=== PATIENT | male | born 2000 | race Caucasian/White ===

== ENCOUNTER 2022-09-17 14:48 | Emergency (ER) | payer BC, SELFPAY ==
--- NOTE | ~2022-09-17 | CT_ITS ---
EXAMINATION: CT abdomen pelvis w con DATE: 09/17/2022 17:04 INDICATION: Left-sided abdominal pain TECHNIQUE: Computed tomography (CT) of the abdomen and pelvis was performed with 100 mL Omnipaque-350 intravenous contrast. Automated exposure control and iterative reconstruction technique were employe d. The dose-length product was 273.52 mGy-cm. COMPARISON: None FINDINGS: Lung bases are clear. Heart size is normal. No pericardial or pleural effusion. Liver, gallbladder, s pleen, right kidney and bilateral adrenal glands are normal. 8 mm cyst at the lower pole of the left kidney. There is mild left hydronephrosis without hydroureter and without a discernible delayed left nephrogram. No evident obstructing stone or mass at the ureteropelvic junction. No stones seen along the course of the left ureter bladder is normal. No bowel obstruction. The appendix is not visualized . No pericecal inflammatory change to suggest acute appendicitis. Trace amount of ascites in the deep pelvis. No abscess or free intraperitoneal gas. No pathologically enlarged abdominal or pelvic lymph adenopathy. Straightening of the normal lumbar lordosis. Bones are otherwise unremarkable. IMPRESSION: 1. Mild left hydronephrosis with transition point without evident obstructing stone or mass at the ur eteropelvic junction. 2. Trace amount of likely reactive free fluid in the deep pelvis. Reviewed, dictated and finalized at location A. IMPRESSION: 1. Mild left hydronephrosis with transition point without evident obstructing s tone or mass at the ureteropelvic junction. 2. Trace amount of likely reactive free fluid in the deep pelvis.
[2022-09-17 14:52] VITALS: BP 124/55; PULSE 71; RESP 16; TEMP 36.8; O2SAT 98
[2022-09-17 15:29] LABS: Basophils Percent Auto 0.3 % (0.2-1.2); Eosinophils Absolute Auto 0.1 K/mm3 (0-0.3); Eosinophils Percent Auto 0.9 % (0-4.4); Hematocrit 44.3 % (42.0-52.0); Hemoglobin 15.5 g/dL (14.0-18.0); Immature Granulocyte Absolute 0.02 K/mm3 (0.00-0.031); Immature Granulocyte Percent A 0.3 % (0-0.5); Lymphocytes Absolute Auto 1.56 K/mm3 (0.9-3.2); Lymphocytes Percent Auto 20.6 % (18.3-44.2); Mean Corpuscular Hemoglobin 30.8 pg (26-34); Mean Corpuscular Volume 87.9 fl (80-100); Monocytes Absolute Auto 0.6 K/mm3 (0.1-0.6); Monocytes Percent Auto 7.9 % (2.6-8.5); Neutrophils Absolute Auto 5.3 K/mm3 (1.3-6.7); Platelet Count Result 228 k/mm3 (150-375); Red Blood Count 5.04 M/mm3 (4.6-6.20); Red Cell Distribution Width 11.7 % (11.5-14.5); White Blood Count 7.6 K/mm3 (4.5-10.0)
[2022-09-17 15:31] LABS: Appearance Urine Clear (Clear); Bilirubin Urine Negative (Negative); Blood Urine Negative (Negative); Color Urine Yellow (Yellow); Glucose Urine UA Negative (Negative); Ketones Urine Negative (Negative); Leukocyte Esterase Ur Negative LEU/UL (Negative); Nitrate Urine Negative (Negative); Protein Urine Negative (Negative); Specific Grav Ur 1.018 (1.001-1.035); Urobilinogen Urine 0.2 mg/dL (<2.0)
[2022-09-17 15:33] LABS: Add Urine Microscopic? NO; Alanine Aminotransferase 23 U/L (6-50); Alkaline Phosphatase 83 U/L (38-126); Anion Gap 8 mmol/L (8-16); Aspartate Amino Transferase 25 U/L (17-59); Blood Urea Nitrogen 12 mg/dL (9-20); Calcium 9.2 mg/dL (8.4-10.2); Carbon Dioxide 27 mmol/L (22-30); Chloride 102 mmol/L (98-107); Estimated CRCL calculation 112 ml/min; Estimated Glomerular Filt Rate > 60; Glucose 97 mg/dL (65-110); Lipase 97 U/L (23-300); Potassium 3.9 mmol/L (3.4-5.0); Sodium 137 mmol/L (137-145)
[2022-09-17] MEDS: KETOROLAC 15 MG/ML VIAL (*BKC) IV PUSH (17:12)
[2022-09-17] MEDS: SODIUM CHLORIDE 0.9% IV 1,000 ML 999 ML IV CONT (17:12)
[2022-09-17] MEDS: ONDANSETRON INJ 4 MG/2 ML VIAL IV PUSH (17:12)
--- NOTE | 2022-09-17 17:13 | ED.ABDPAIN ---
HPI - Abdominal Pain General Chief Complaint: Abdominal Pain Stated Complaint: abd pain Time Seen by Provider: 09/17/22 16:08 Source: patient and RN notes reviewed Mode of arrival: ambulatory Limitations: no limitations History of Present Illness HPI narrative: This is a 22 year old male who presents for evaluation of left upper abdominal pain. Patient reports his pain started this morning. It is constant and nonradiating. He describes his pain as sharp and dull. HE denies nausea, vomiting, fever or chills. He denies having back pain or similar pain in the past. He denies urinary complaint. HE has not take any medication for pain. Related Data Allergies Allergy/AdvReac Type Severity Reaction Status Date / Time No Known Allergies Allergy Verified 09/17/22 15:05 Review of Systems Constitutional: Constitutional: Denies weakness Cardiovascular: Cardiovascular: Denies syncope, Denies rapid heart rate, Denies irregular heart rhythm, Denies leg edema and Denies dyspnea Respiratory: Respiratory: Denies chest congestion, Denies hemoptysis, Denies excessive phlegm production and Denies dyspnea Gastrointestinal: Gastrointestinal: Reports abdominal pain, Denies hematochezia, Denies diarrhea and Denies vomiting Genitourinary: Genitourinary: Denies hematuria, Denies dysuria, Denies penile discharge and Denies testicular pain Musculoskeletal: Musculoskeletal: Denies joint swelling, Denies loss of height and Denies muscle weakness Neurologic: Denies syncope, Denies focal weakness and Denies weakness PMFSH Past Medical History Medical History (Updated 09/17/22 @ 18:14 by Hilaria Parmar MD) Patient denies medical problems Surgical History Surgical History (Updated 09/17/22 @ 17:18 by Hilaria Parmar MD) No pertinent past surgical history Social History Social History (Updated 09/17/22 @ 17:18 by Hilaria Parmar MD) Smoking status: Never smoker Exam Const: General: no acute distress and alert Nutritional Appearance: well nourished Orientation/consciousness: patient oriented x3 Limitations: no limitations HENMT: Head: normal to inspection Eyes: EOM: EOMs intact bilaterally Chest: Chest palpation & inspection: normal inspection of the chest Resp: Effort & Inspection: normal respiratory effort Auscultation: clear to auscultation bilaterally Cardio: Rate: regular rate Rhythm: regular rhythm Heart sounds: no murmurs GI: GI Palp: Yes Soft to palpation, Yes Tenderness to palpation present (GI) (LLQ), Yes Guarding due to palpation present (GI) (voluntary) and No Rigid due to palpation Auscultation: bowels sounds not normal Skin: General skin exam: normal color Rashes: no rashes Wounds: no wounds Neuro: General: patient oriented x3, moves all extremities and CN's II-XI intact bilaterally Extrem: General: normal to inspection Psych: Mental Status: mental status grossly normal Affect: normal affect Attitude: cooperative Course Reevaluation(s) Reevaluation #1: Patient reports his pain has resolved after Toradol. I discussed with patient that CT shows left hydronephrosis. Date: 09/17/22 Time: 17:59 Consultations Consultation #1: I Discussed CT shows left UPJ transition point with hydronephrosis. HE states patient will need to follow up as outpatient. Date: 09/17/22 Time: 18:12 Vital Signs Vital signs: Vital Signs Temperature 98.3 F 09/17/22 14:52 Pulse Rate 71 09/17/22 14:52 Respiratory Rate 16 09/17/22 14:52 Blood Pressure 124/55 L 09/17/22 14:52 Pulse Oximetry 98 09/17/22 14:52 Oxygen Delivery Room Air 09/17/22 14:52 Temperature 98.3 F 09/17/22 14:52 Pulse Rate 71 09/17/22 14:52 Respiratory Rate 16 09/17/22 14:52 Blood Pressure 124/55 L 09/17/22 14:52 Pulse Oximetry 98 09/17/22 14:52 Oxygen Delivery Room Air 09/17/22 14:52 MDM - Abdominal Pain Differential Diagnosis Differential diagnosis: Likely abdominal pain, calculus of kidney,
== END 2022-09-17 18:45 | disposition home or self-care (01) ==
PROVIDERS: Emergency Medicine; Emergency Provider General Practice
DX: N13.30 Unspecified hydronephrosis (principal)
CPT/HCPCS: 36415; 74177; 80053; 81003; 83690; 85025; 96361; 96374; 96375; 99284; J1885; J2405; J7030; Q9967

== ENCOUNTER 2022-10-02 07:39 | Outpatient (CLI) | payer BC, SELFPAY ==
--- NOTE | ~2022-10-02 | NM_ITS ---
EXAMINATION: ALEX lynch renal scan DATE: 10/02/2022 11:41 INDICATION: Left hydronephrosis. TECHNIQUE: 7.8 mCi Tc-99m MAG3 was administered IV. 40 mg furosemide was administered IV immediately afterward. The patient was scanned in the supine position. A posterior abdominal radionuclide angiog everette was obtained. A subsequent time course of static images of the kidneys, ureters, and bladder was obtained. COMPARISON: CT abdomen and pelvis 09/17/2022 FINDINGS: The posterior abdominal radionuclide angiogram and sequential static images show normal siz e, position, and morphology of the kidneys. Peak renal parenchymal uptake was 2 min in right kidney a nd 3 min in left kidney (normal peak 3-5 minutes). The relative early renal uptake was 49% on the ri ght and 51% on the left (<40% is abnormal). No abnormalities of the ureters or bladder are seen. T1/2 for clearance of activity from the right kidney and proximal collecting system was 5 minutes. T1/2 for clearance of activity from the left kidney and proximal collecting system was 6 minutes. Notes on interpretation: T1/2 <10 minutes is normal, 10-15 minutes is low grade obstruction of questi onable clinical significance, 15-20 minutes is partial obstruction that is likely clinically signific ant, >20 minutes is high grade obstruction. Note that false positives may be seen with supine positio manpreet, dehydration, severely dilated nonobstructed kidney, atonic collecting system, poor renal functi on, and chronic furosemide use. IMPRESSION: 1. Symmetric kidney function. 2. No delay in contrast clearance from either kidney to suggest fixed obstruction. Reviewed, dictated and finalized at location A. IMPRESSION: 1. Symmetric kidney function. 2. No delay in contrast clearance from either kidney to suggest fixed obstruct ion.
== END 2022-10-02 07:40 | disposition home or self-care (01) ==
PROVIDERS: Visit Provider Urology
DX: N13.30 Unspecified hydronephrosis (principal)
CPT/HCPCS: 78708; A9562; J1940

== ENCOUNTER 2024-03-22 08:47 | Emergency (ER) | payer BC, SELFPAY ==
--- NOTE | ~2024-03-22 | XR_ITS ---
XR hand LT min 3V DATE: 03/22/2024 10:22 INDICATION: Pain and swelling of fourth digit TECHNIQUE: 4 views COMPARISON: None FINDINGS: No fracture, dislocation, periosteal reaction or bone destruction. Joint spaces are preserv ed. No erosive change or chondrocalcinosis. IMPRESSION: Negative Reviewed, dictated and finalized at location A. 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
--- NOTE | 2024-03-22 11:07 | ED.WOUNDLAC ---
HPI - Wound/Laceration General Chief Complaint: Wound/Laceration Stated Complaint: infected finger Time Seen by Provider: 03/22/24 09:57 Source: patient Mode of arrival: ambulatory Limitations: no limitations History of Present Illness HPI narrative: This is a 23-year-old male, with history of cat bite to the left index finger at the PIP 1 month ago, who presents emergency department complaining of left index finger pain and swelling. The patient states he was at the gym earlier today, weightlifting, when he felt pain at the left palm at the base of the 1st finger. He rates his pain 6/10 and described as sharp, associated with swelling though no fevers or redness. He denies any other injury and has no other complaints. He is concerned for infection of the finger. Related Data Allergies Allergy/AdvReac Type Severity Reaction Status Date / Time No Known Allergies Allergy Verified 03/22/24 09:27 Review of Systems Review of Systems: All systems reviewed & are unremarkable except as noted in HPI and below PMFSH Past Medical History Medical History Patient denies medical problems Surgical History Surgical History No pertinent past surgical history Social History Social History Smoking status: Never smoker Alcohol intake: never Substance use: never Exam Narrative: GENERAL: Well-developed, well-nourished, and in no acute distress. HEAD: Normocephalic, atraumatic. EYES: PERRLA and EOMI. CHEST: Clear to auscultation. No respiratory distress. No wheezes rales or rhonchi HEART: Regular rate and rhythm. No murmur heard. Normal peripheral pulses. EXTREMITIES: Mild swelling is noted of the left index finger, extending from the MCP to the distal finger though without erythema. There is tenderness to palpation over the palmar aspect of left MCP. There is some tenderness with passive flexion and extension of the finger. Range of motion of the fingers intact Normal range of motion of all other extremities. No edema. SKIN: Warm, dry, no rash. NEURO: Alert and oriented x3. No focal deficit. Moving all 4 limbs spontaneously PSYCH: Normal mood and affect. Course Course Emergency Course: 11:07 -x-ray of the left hand not concerning for fracture or dislocation. I suspect the patient's pain and swelling is related to a musculoskeletal strain wall weightlifting. I do not suspect infection at this time. Will discharge with recommendation for RICE therapy. I discussed the findings and recommendations with the patient. Discussed return and emergency precautions including signs/symptoms of flexor tenosynovitis and neurovascular compromise. The patient voiced understanding and agreement with the plan. All questions answered to her satisfaction. Vital Signs Vital signs: Vital Signs Pulse Rate 69 03/22/24 11:23 Respiratory Rate 18 03/22/24 11:23 Blood Pressure 122/79 03/22/24 11:23 Pulse Oximetry 99 03/22/24 11:23 Pulse Rate 69 03/22/24 11:23 Respiratory Rate 18 03/22/24 11:23 Blood Pressure 122/79 03/22/24 11:23 Pulse Oximetry 99 03/22/24 11:23 MDM - Wound/Laceration MDM Narrative Medical decision making narrative: plan: Imaging, pain control, reassess Differential Diagnosis Differential diagnosis: Likely other ( contusion, strain, fracture, dislocation, other) Discharge Plan Discharge Clinical Impression: Strain of left index finger, Hand pain, left Patient Disposition: Home, Self-Care Condition: Stable Instructions: Antibiotic Form, Finger Sprain (ED) Additional Instructions: You were seen in the emergency department. Your x-ray was not concerning for fracture or dislocation. I suspect you have strained the tendon in the finger. I recommend rest, icing, elevation, Tylenol/ibuprofen as needed for pain and follow-up with your primary care doctor. If you develop fevers with rapidly spreading redness, the finger appears blue/cold, or if you have other emergent concerns for life, limb, or eyesight, return to the emergency department. Patient Language: Slovenian Prescriptions: No Action naproxen 500 mg tablet 500 mg PO BID PRN (Reason: pain) Qty: 10 0RF Follow-up/Referrals: UNKNOWN,DOCTOR [Primary Care Provider] - 1 Week Stand Alone Forms: Work/School Release IP Time of Disposition: 11:08
[2024-03-22 11:23] VITALS: BP 122/79; PULSE 69; RESP 18; O2SAT 99
== END 2024-03-22 11:24 | disposition home or self-care (01) ==
PROVIDERS: Emergency Provider Preventive Medicine Aerospace Medicine
DX: S66.111A Strain of flexor muscle, fascia and tendon of left index finger at wrist and hand level, initial encounter (principal); X50.0XXA Overexertion from strenuous movement or load, initial encounter; Y93.B3 Activity, free weights
CPT/HCPCS: 73130; 99283